=== PATIENT | female | born 1965 | race Caucasian/White ===

== ENCOUNTER 2019-06-06 14:21 | Day surgery (SDC) | payer MEDICAID ==
[~2019-06-06] VITALS: Ht 149.9 cm; Wt 48.2 kg
[~2019-06-06 14:21] MED LIST: LIDOCAINE/PF 2% 5 ML VIAL INJ ONE; PROPOFOL 1% 20 ML VIAL IVP ONE
[2019-06-06] MEDS ORDERED: SODIUM CHLORIDE 0.9% 1,000 ML IV ONE (14:45)
[2019-06-06] MEDS ORDERED: FAMO20 PO (14:54)
[2019-06-06] MEDS ORDERED: FERR-89 PO (14:54)
[2019-06-06] MEDS ORDERED: DOCU-275 PO (14:54)
[2019-06-06] MEDS ORDERED: ATOR40TA28 PO (14:54)
[2019-06-06] MEDS ORDERED: INSLAN SQ (14:54)
[2019-06-06] MEDS ORDERED: INSU100V SQ (14:54)
[2019-06-06] MEDS ORDERED: LISI-660 PO (14:54)
[2019-06-06 15:06] LABS: GLUCOMETER DEV NAME(LOC) SDS.; GLUCOSE,POINT OF CARE 88 MG/DL (70-110)
== END 2019-06-06 17:30 | disposition home or self-care (01) ==
LOC: SURGERY 14:21
PROVIDERS: ATTEND Internal Medicine Gastroenterology
DX: R19.5 Other fecal abnormalities (principal); D50.9 Iron deficiency anemia, unspecified; K64.0 First degree hemorrhoids; D12.2 Benign neoplasm of ascending colon; K29.50 Unspecified chronic gastritis without bleeding; B96.89 Other specified bacterial agents as the cause of diseases classified elsewhere; K31.89 Other diseases of stomach and duodenum; E78.5 Hyperlipidemia, unspecified; I10 Essential (primary) hypertension; E55.9 Vitamin D deficiency, unspecified; E11.9 Type 2 diabetes mellitus without complications; Z79.4 Long term (current) use of insulin; Z79.899 Other long term (current) drug therapy; Z98.890 Other specified postprocedural states; Z72.89 Other problems related to lifestyle
CPT/HCPCS: 45385; 43239; 82962; 88305; 88312; 88313; C1769; J2704; J3490